=== PATIENT | female | born 1965 | race Hispanic/Latino ===

== ENCOUNTER 2020-10-21 21:15 | Emergency (ER) | payer OTHER, SELFPAY ==
--- OUTSIDE RECORDS SUMMARY | 2020-10-21 21:16 | XMS REPORT | Clinical Summary ---
:1965 Author Organization [facility] Address [address] [place] [address] Care Team Providers Name Role Phone Unavailable Primary Care Provider Unavailable Allergies Active Allergy Reactions Severity Noted Date Comments Tetracyclines Hives Medium 01/08/2019 Severe vomitin g and cramping Medications No known medications Active Problems Not on file Social History Tobacco Use Types Packs/Day Years Used Date Never Smoker Smokeless Tobacco: Never Used Alcohol Use Drinks/Week oz/Week Comments No Alcohol Habits Answer Date Recorded How often do you have a drink containing alcohol? Never 01/08/2019 How many drinks containing alcohol do you have on a typical Not asked day when you are drinking? How often do you have six or more drinks on one occasion? No t asked Sex Assigned at Date Recorded Not on file Last Filed Vital Signs Not on file Plan of Treatment Health Maintenance Due Date Last Done Comments BREAST CANCER SCREENING 1965 COLON CANCER SCREENING COLONOSCOPY 1965 CERVICAL CANCER SCREENING PAP ONLY (Age 21-65) 1986 LIPID PANEL 2010 INFLUENZA VACCINE (#1) 2020 Results Not on fileafter 10/21/2019 Insurance Payer Benefit Plan / Subscriber ID Effective Dates Phone Addre ss Type Group [facility] [id number] 2016-Татьяна [phone] HMO/POS HEALTH CHOICE CHOICE EXCHANGE t 04 AMBETTER AMBETTER [id number] 2018-Татьяна SUPERIOR t
--- OUTSIDE RECORDS SUMMARY | 2020-10-21 21:17 | XMS REPORT ---
:1965 Author Organization [facility] Address [address] [place] [address] Care Team Providers Name Role Phone Drake Romo Unavailable [phone] PROBLEMS Type Condition ICD9-CM [id number] Onset Condition SNOMED Code Notes Code Code Dates Status Problem Solitary R91.1 Active 879535306 pulmonary nodule Problem Dysthymic F34.1 Active 99205264 disorder Problem Seasonal and J30.9 Active 71821822 perennial allergic rhinitis Problem Mixed E78.2 Active 310356909 hyperlipidemia Problem Gastro-esophageal K21.9 Active 496951849 reflux disease without esophagitis Problem Fatigue, R53.83 Active 18577694 unspecified type Problem Diabetes mellitus E11.9 Active 059714172 without complication Problem Pelvic pain R10.2 Active 85652447 Problem Chronic vaginitis N76.1 Active 52616118 Problem Mixed N39.46 Active 590564492 incontinence Problem Vitamin B12 E53.8 Active 538560680 deficiency Problem Menopause Z78.0 Active 607970663 Problem Adult BMI Z68.31 Active 942446367 31.0-31.9 kg/sq m Problem Hypersomnia G47.10 Active 16150586 Problem Insomnia, G47.00 Active 924191423 unspecified type Problem Non-alcoholic K76.0 Active 380015020 fatty liver disease Problem Reactive airway J45.909 Active 438409124358 disease without complication, unspecified asthma severity, unspecified whether persistent Problem Vitamin D E55.9 Active 62238864 deficiency disease ALLERGIES Allergen (clinical drug Drug/Non Drug Allergy Reaction Allergy Type Onset Date Status ingredient) documented on EMR tetracycline tetracycline Unknown Drug Allergy Active ENCOUNTERS from 1965 to 2020-09-12 Encounter Location Date Provider Diagnosis [address], [place] [address] IMMUNIZATIONS Vaccine Route Administration Date Status PNEUMAVAX 23 IM Intramuscular December 22, 2018 Administered Betamethasone Sodium Phosphate Unknown Jun 18, 2019 A dministered Flucelvax - single dose syringe IM Intramuscular Sep 01, 2020 Administered Afluria IM Intramuscular December 22, 2018 Administered Adacel (Tdap) IM Intramuscular December 22, 2018 Administered Vitamin B12 (Cyanocobalamin) IM Intramuscular March 02, 2020 Ad ministered Vitamin B12 (Cyanocobalamin) IM Intramuscular Sep 23, 2019 Ad ministered Vitamin B12 (Cyanocobalamin) Unknown Aug 20, 2019 Pen ding Vitamin B12 (Cyanocobalamin) IM Intramuscular Jun 10, 2019 Ad ministered Vitamin B12 (Cyanocobalamin) IM Intramuscular Jun 02, 2019 Ad ministered Vitamin B12 (Cyanocobalamin) IM Intramuscular May 26, 2019 Ad ministered Vitamin B12 (Cyanocobalamin) IM Intramuscular May 19, 2019 Ad ministered LIDOCAINE HCL 10MG/ML Unknown Jun 18, 2019 Administer ed SOCIAL HISTORY Tobacco Use: Social History Observation Description Date Details (start date - stop date) Never Smoker Sex Assigned At : Social History Observation Description Sex Assigned At Unknown Alcohol Screen Question Answer Notes Did you have a drink containing alcohol in the past year? No Points 0 Interpretation Negative Tobacco Use/Smoking Question Answer Notes Are you a never smoker Additional Findings: Tobacco Non-User Current non-smoker Sexual History Question Answer Notes Had sex in the past 12 months (vaginal, oral, or anal)? Yes with Men only Use protection? No REASON FOR REFERRAL No Information VITAL SIGNS No information MEDICATIONS Medication SIG (Take, Route, Notes Start Date End Date Status Frequency, Duration) Zolpidem Tartrate 5 MG 1 tablet at bedtime Active Orally Once a day for 30 days Cyanocobalamin 1000 1 ml intramuscular Active MCG/ML injection once a week for 84 days Estrace 0.1 MG/GM as directed Vaginal 1g Not-Taking vaginally twice weekly Trazodone HCl 100 MG Take 1/2 tab QHS x 1 Not-Taking week then 1 tab QHS Orally Once a day for 30 ProAir HFA 108 (90 2 puffs as needed Active Base) MCG/ACT Inhalation every 6 hrs for 30 days Omeprazole 40 MG 1 capsule Orally Once a Active day for 30 day(s) BD Syringe/Needle 23G 1 syringe/needle with Active X 1" 3 ML b12 intramuscularly once a week for 84 days Victoza 18 MG/3ML inject 1.8 mg/day. Active Subcutaneous Once a day for 30 days Azithromycin 500 MG 1 tablet Orally Once a Aug,Aug, Active day for 5 day(s) 2019 Basaglar KwikPen 100 as directed Act dejuan UNIT/ML Subcutaneous 40 units once a day SQ for 30 days Simvastatin 80 MG 1 tablet in the evening Active Orally Once a day for 30 day(s) PROCEDURES No Information RESULTS No Results REASON FOR VISIT COVID/FLU/STREP Test--> PENDING MEDICAL (GENERAL) HISTORY Type Description Date Medical History Diabetes mellitus without complication Medical History Mixed hyperlipidemia Medical History Dysthymic disorder Medical History Solitary pulmonary nodule Medical History Gastro-esophageal reflux disease without esophagitis Medical History Seasonal and perennial allergic rhinitis Medical History Non-alcoholic fatty liver disease Medical History Fatigue, unspecified type Medical History Hypersomnia Surgical History Tubal ligation 1996 Surgical History Breast reduction 2000 Surgical History gall bladder surgery 1999 Surgical History Endometrial ablation 2011 Surgical History sling, at bladder neck 2014 Goals Section No Information Health Concerns No Information MEDICAL EQUIPMENT No Information MENTAL STATUS No Information FUNCTIONAL STATUS No Information ASSESSMENTS No Information PLAN OF TREATMENT Medication Medication Name Sig Start Date Stop Date Azithromycin 500 MG 1 tablet Orally Once a day for 5 day(s) 2019Aug, Next Appt Details Provider Name:Drake Romo 2020-09-20 0 9:50:00 AM, [address], [address], [place], [address], Insurance Providers Payer Name Payer Payer Insured Patient Coverage Coverage End Address Phone Name Relationship to Start Date Sreedhar e Insured Ambetter from [phone] Anna Mehta self [place] [id number] [address] [facility] [address]
--- OUTSIDE RECORDS SUMMARY | 2020-10-21 21:17 | XMS REPORT | Continuity of Care Document ---
:1965 Author Organization [facility] Care Team Providers Name Role Phone [facility] Unavailable Un available Problems Problem Status Onset Classification Date Comments Sourc e Date Reported R10.11 RIGHT Active Sout heast UPPER 6 QUADRANT PAIN, K80.20 Medications No Data Provided for This Section Allergies, Adverse Reactions, Alerts No Known Medication Allergies Immunizations No Data Provided for This Section Results Order Results Value Reference Date Interpretation Comments Source Name Range CHEM eGFR 101 08/20/ Result PANEL 2016 Comment: [facility] eGFR is calculated using the CKD-EPI formula. In most young, healthy individuals the eGFR will be >90 mL/min/1.73m2. The eGFR declines with age. An eGFR of 60-89 may be normal in some populations, particularly the elderly, for whom the CKD-EPI formula has not been extensively validated. Use of the eGFR is not recommended in the following populations:<b r/>
Indivi duals with unstable creatinine concentrations , including patients and those with serious co-morbid conditions.

Patient s with extremes in muscle mass or diet.

The data above are obtained from the National Kidney Disease Education Program (NKDEP) which additionally recommends that when the eGFR is used in patients with extremes of body mass index for purposes of drug dosing, the eGFR should be multiplied by the estimated BMI. CHEM POC 0.7 0.5 - 1.4 08/20/ PANEL Creatinine 2016 [facility] Pathology Reports No Data Provided for This Section Diagnostic Reports Report Value Date Source Abdomen w/wo contrast MR ABDOMEN WITHOUT AND WITH CONTRAST 08/20 [facility] MRI HISTORY: Hyperbilirubinemia, patient reports worsening right upper quadrant pain with nausea and diarrhea; TECHNIQUE: Multiplanar imagi ng sequences including in and out of phase imaging was performed. Additionally multiphasic postcontrast imaging after the administration of gadolinium contrast was obtained. COMPARISON: None available. FINDINGS: The liver appears normal. No cirrhotic features are identified. No hepatic steatosis. No focal liver lesion. No abnormal enhancement in the liver. There is no intrahepatic jose iary dilation. The gallbladder is not visualized and has likely been resected. No dilation of the common bile duct. No choledocholithiasis. Pancreas appears normal. No evidence of chronic or acute pancreatitis. No dilation of the pancreatic duct. No abnormal pancreatic enhancement. The adrenal glands, spleen, and kidneys appear normal. No hydronephrosis. Trace bilateral pleural effu sions and trace pericardial effusion are noted. The visualized portion of the small and large bowel appears normal. IMPRESSION: 1. Cholecystectomy. 2. Normal liver. No biliary dilation. 3. Trace pericardial effusion and trace bilatera l pleural effusions. SL: [id number] Consultation Notes No Data Provided for This Section Discharge Summaries No Data Provided for This Section History and Physicals No Data Provided for This Section Vital Signs No Data Provided for This Section Encounters Location Location Encounter Encounter Reason Attending ADM LA Stat us Source Details Type Number For Provider Date Date [facility] [id number] Eder 08[facility]20 08/21 Carlos Valenzuela /2015 [facility] Procedures No Data Provided for This Section Assessment and Plan No Data Provided for This Section Plan of Care No Data Provided for This Section Social History Social History Date Source No data available for this 08/21/2016 [facility] section Family History No Data Provided for This Section Advance Directives No Data Provided for This Section Functional Status No Data Provided for This Section
--- OUTSIDE RECORDS SUMMARY | 2020-10-21 21:17 | XMS REPORT ---
:1965 Author Organization [facility] Address [address] [place] [address] Care Team Providers Name Role Phone Drake Romo Unavailable [phone] PROBLEMS Type Condition ICD9-CM [id number] Onset Condition SNOMED Code Notes Code Code Dates Status Problem Solitary R91.1 Active 759000922 pulmonary nodule Problem Dysthymic F34.1 Active 20430257 disorder Problem Seasonal and J30.9 Active 14880278 perennial allergic rhinitis Problem Mixed E78.2 Active 270885118 hyperlipidemia Problem Gastro-esophageal K21.9 Active 580140517 reflux disease without esophagitis Problem Fatigue, R53.83 Active 42220739 unspecified type Problem Diabetes mellitus E11.9 Active 054412325 without complication Problem Pelvic pain R10.2 Active 94136011 Problem Chronic vaginitis N76.1 Active 96730993 Problem Mixed N39.46 Active 895942778 incontinence Problem Vitamin B12 E53.8 Active 332796056 deficiency Problem Menopause Z78.0 Active 250918611 Problem Adult BMI Z68.31 Active 694468021 31.0-31.9 kg/sq m Problem Hypersomnia G47.10 Active 77940588 Problem Insomnia, G47.00 Active 530053400 unspecified type Problem Non-alcoholic K76.0 Active 433722786 fatty liver disease Problem Reactive airway J45.909 Active 254248777991 disease without complication, unspecified asthma severity, unspecified whether persistent Problem Vitamin D E55.9 Active 64834516 deficiency disease ALLERGIES Allergen (clinical drug Drug/Non Drug Allergy Reaction Allergy Type Onset Date Status ingredient) documented on EMR tetracycline tetracycline Unknown Drug Allergy Active ENCOUNTERS from 1965 to 2020-09-01 Encounter Location Date Provider Diagnosis [facility] [address] [facility] Aug, [facility] Demetrius hurt for influenza Family Medicine [address], [place] [address] IMMUNIZATIONS Vaccine Route Administration Date Status PNEUMAVAX [...] No information MEDICATIONS Medication SIG (Take, Route, Start Date End Date Status Frequency, Duration) Victoza 18 MG/3ML inject 1.8 mg/day. Acti ve Subcutaneous Once a day for 30 days BD Syringe/Needle 23G X 1 syringe/needle with Active 1" 3 ML b12 intramuscularly once a week for 84 days Cyanocobalamin 1000 1 ml intramuscular Ac tive MCG/ML injection once a week for 84 days ProAir HFA 108 (90 Base) 2 puffs as needed Active MCG/ACT Inhalation every 6 hrs for 30 days Trazodone HCl 100 MG Take 1/2 tab QHS x 1 Not-Taking week then 1 tab QHS Orally Once a day for 30 Estrace 0.1 MG/GM as directed Vaginal 1g Not-Taking vaginally twice weekly Zolpidem Tartrate 5 MG 1 tablet at bedtime Active Orally Once a day for 30 days Omeprazole 40 MG 1 capsule Orally Once a Active day for 30 day(s) Basaglar KwikPen 100 as directed Subcutaneous Active UNIT/ML 40 units once a day SQ for 30 days Simvastatin 80 MG 1 tablet in the evening Active Orally Once a day for 30 day(s) Vitamin D3 32705 UNIT 1 capsule Orally Once a 18 May, 2020 15 Aug, 2020 Active week x 12 weeks for 30 day(s) PROCEDURES No Information RESULTS No Results REASON FOR VISIT immunization MEDICAL (GENERAL) HISTORY Type Description Date Medical [...] No Information FUNCTIONAL STATUS No Information ASSESSMENTS Encounter Date Diagnosis Notes Aug, Need for influenza vaccination (ICD-10 - Z23) PLAN OF TREATMENT Next Appt Details Provider Name:Drake Romo 2020-09-20 0 9:50:00 AM, [address], [place], [address], Insurance Providers Payer Name Payer Payer Insured Patient Coverage Coverage End Address Phone Name Relationship to Start Date Sreedhar e Insured Ambetter from [phone] Anna Mehta self [place] [id number] [address] [facility] [address]
--- OUTSIDE RECORDS SUMMARY | 2020-10-21 21:17 | XMS REPORT ---
:1965 Author Organization [facility] Address [address] [place] [address] Care Team Providers Name Role Phone Drake Romo Unavailable [phone] PROBLEMS Type Condition ICD9-CM [id number] Onset Condition SNOMED Code Notes Code Code Dates Status Problem Solitary R91.1 Active 941135027 pulmonary nodule Problem Dysthymic F34.1 Active 05955480 disorder Problem Seasonal and J30.9 Active 46792544 perennial allergic rhinitis Problem Mixed E78.2 Active 472700648 hyperlipidemia Problem Gastro-esophageal K21.9 Active 646077605 reflux disease without esophagitis Problem Fatigue, R53.83 Active 20417557 unspecified type Problem Diabetes mellitus E11.9 Active 027238886 without complication Problem Pelvic pain R10.2 Active 74341660 Problem Chronic vaginitis N76.1 Active 04846762 Problem Mixed N39.46 Active 461603599 incontinence Problem Vitamin B12 E53.8 Active 090619507 deficiency Problem Menopause Z78.0 Active 797759246 Problem Adult BMI Z68.31 Active 006467693 31.0-31.9 kg/sq m Problem Hypersomnia G47.10 Active 96953669 Problem Insomnia, G47.00 Active 238081027 unspecified type Problem Non-alcoholic K76.0 Active 628601186 fatty liver disease Problem Reactive airway J45.909 Active 069774817653 disease without complication, unspecified asthma severity, unspecified whether persistent Problem Vitamin D E55.9 Active 50193187 deficiency disease ALLERGIES Allergen (clinical drug Drug/Non Drug Allergy Reaction Allergy Type Onset Date Status ingredient) documented on EMR tetracycline tetracycline Unknown Drug Allergy Active ENCOUNTERS from 1965 to 2020-09-12 Encounter Location Date Provider Diagnosis [address] Aug, [facility] Demetrius [facility] Medicine [address], [place] [address] unspecified ty pe J06.9 ; Acute non-recurrent f rontal sinusitis J01.1 0 ; Right ear pain H92.01 and Suspected COVID-19 virus infection Z20.8 28 IMMUNIZATIONS Vaccine Route Administration Date Status PNEUMAVAX [...] REASON FOR REFERRAL No Information VITAL SIGNS Height 60 in Aug, Weight 167 lbs Aug, Temperature 97 degrees Fahrenheit Aug, BMI 32.61 kg/m2 Aug, Blood pressure systolic 135 mm Hg Aug, Blood pressure diastolic 74 mm Hg Aug, MEDICATIONS Medication SIG (Take, Route, Notes Start [...] for 30 day(s) PROCEDURES No Information RESULTS Component Value Reference Range STREP A RAPID Reviewed date:09/12/2020 17:35:19 Interpretation:Negative Performing Lab: Result Negative FLU TEST A/B Reviewed date:09/12/2020 17:35:19 Interpretation: Performing Lab: A Negative B Negative REASON FOR VISIT Earache and sore throat MEDICAL (GENERAL) HISTORY Type Description Date Medical [...] STATUS No Information ASSESSMENTS Encounter Date Diagnosis Assessment Notes Treatment Notes Treatm ent Clinical Notes Aug, Upper respiratory tract infection, unspecified type (ICD-10 - J06.9) Aug, Acute With the duration non-recurrent and severity of frontal sinusitis symptoms/PE, will (ICD-10 - J01.10) treat with Zithromax for 5 days. Side effect discussed with patient. In addition, discussed supportive measures and home remedies for symptomatic relief. Increase hydration. Advised on signs/symptoms to monitor. If able to take, OK to use OTC Tylenol and/or NSAIDs for pain and fever, temporarily. It is important to rest and take your medication as recommended by the doctor. You should clean your hands frequently. You should remain indoors and cover your mouth when coughing. If necessary you may have to wear a mask to keep from infecting others. You should also change your toothbrush within 24-48 hours of starting any antibiotics. Salt water gargles three times a day is recommended for pharyngeal irritation and congestion. Nasal saline sprays three times a day to the nostrils may help with the nasal congestion. You may also take Mucinex OTC for chest congestion. If the symptoms persists or worsen after 24-48 hours especially if taking medication, then you are to call back for reevaluation or go to the ER. Aug, Right ear pain (ICD-10 - H92.01) Aug, Suspected COVID-19 Questionable/possibl virus infection e exposure to COVID. (ICD-10 - Z20.828) With patient's history and duration/severity of symptoms, it was determined to proceed with testing of this patient for suspected case of COVID-19. CDC/IDER protocols were followed. While maintaining minimal exposure specimen was collected while patient remained in their car. Clinical staff went to the car dressed in appropriate PPE to collect the specimen while maintaining protocol. === During testing/collection of nasopharyngeal specimen, staff/provider wore proper PPE, bagged specimen and properly disposed of PPE accordingly. - Specimen was verified with patient name/, properly handed to appropriate lab personnel. Patient was counseled based on clinical assessment, disease severity, and input from infectious disease and local health department. if local health department deemed that patient can be sent home, patient was provided with a surgical mask and advised to wear while commuting home. Patient was advised to self-quarantine for 14 days, or until negative results are received. Patient was instructed to refer to CDC guidelines and provided additional information on self-quarantine. Local health department contact information was given to patient: ==[facility], [address] [place] [address]. [phone] or [phone] Aug, Other -- Medication reviewed and updated. -- Dietary and Lifestyle modifications addressed regarding diet, exercise and weight managemen t. -- Treatment options, risks and benefits, side effects reviewed in detail. -- Advised on signs/symptoms to monitor and when to call clinic and/or visit the nearest ER. Patient verbalized understanding and agreeable with plan. PLAN OF TREATMENT Medication Medication Name Sig Start Date Stop Date Azithromycin 500 MG 1 tablet Orally Once a day for 5 day(s) 23 2019Aug, Treatment Notes Assessment Notes Clinical Notes Acute non-recurrent frontal With the duration and severity o f sinusitis symptoms/PE, will treat with Zithromax for 5 days. Side effect discussed with patient. In addition, discussed supportive measures and home remedies for symptomatic relief. Increase hydration. Advised on signs/symptoms to monitor. If able to take, OK to use OTC Tylenol and/or NSAIDs for pain and fever, temporarily. It is important to rest and take your medication as recommended by the doctor. You should clean your hands frequently. You should remain indoors and cover your mouth when coughing. If necessary you may have to wear a mask to keep from infecting others. You should also change your toothbrush within 24-48 hours of starting any antibiotics. Salt water gargles three times a day is recommended for pharyngeal irritation and congestion. Nasal saline sprays three times a day to the nostrils may help with the nasal congestion. You may also take Mucinex OTC for chest congestion. If the symptoms persists or worsen after 24-48 hours especially if taking medication, then you are to call back for reevaluation or go to the ER. Suspected COVID-19 virus Questionable/possible exposure to infection COVID. With patient's history and duration/severity of symptoms, it was determined to proceed with testing of this patient for suspected case of COVID-19. CDC/IDER protocols were followed. While maintaining minimal exposure specimen was collected while patient remained in their car. Clinical staff went to the car dressed in appropriate PPE to collect the specimen while maintaining protocol. During testing/collection of nasopharyngeal specimen, staff/provider wore proper PPE, bagged specimen and properly disposed of PPE accordingly. - Specimen was verified with patient name/, properly handed to appropriate lab personnel. Patient was counseled based on clinical assessment, disease severity, and input from infectious disease and local health department. if local health department deemed that patient can be sent home, patient was provided with a surgical mask and advised to wear while commuting home. Patient was advised to self-quarantine for 14 days, or until negative results are received. Patient was instructed to refer to CDC guidelines and provided additional information on self-quarantine. Local health department contact information was given to patient: ==[facility], [address] [place] [address]. [phone] or [phone] Treatment Notes Test Name Order Date Novel Coronavirus (COVID-19), RODRIGO 2020-09-12 Next Appt Details prn Reason: Provider Name:Drake Romo, 2020-09-20 0 9:50:00 AM, [address], [place], [address], Insurance Providers Payer Name Payer Payer Insured Patient Coverage Coverage End Address Phone Name Relationship to Start Date Sreedhar e Insured Ambetter from [phone] Anna Mehta self [place] [id number] [address] [facility] [address]
--- OUTSIDE RECORDS SUMMARY | 2020-10-21 21:17 | XMS REPORT | Continuity of Care Document ---
:1965 Author Organization [facility] t Address [address] [place] [address] Care Team Providers Name Role Phone Narinder Valenzuela Attending Clinician Problems Condition Condition Condition Status Onset Resolution Last Treating Co mments Source Name Details Category Date Date Treatment Clinician Date R10.11 Diagnosis Active 2015-102016-08-20 Mem oria RIGHT 0-24 13:18:00 l UPPER R10.11 00:00: [place] QUADRANT RIGHT 00 PAIN, UPPER K80.20 QUADRANT PAIN, K80.20 Active 08/13/2016 [facility] Uterine Uterine Problem Active [facility] leiomyoma, leiomyoma, Cl inic unspecifie unspecifie d location d location Postmenopa Postmenopa Problem Active [facility] RLQ RLQ Problem Active [facility] abdominal abdominal Clin ic pain pain History of History of Problem Active [facility] endometria endometria Cl inic l ablation l ablation History of History of Problem Active [facility] tubal tubal Clinic ligation ligation Allergies, Adverse Reactions, Alerts Allergy Allergy Status Severity Reaction(s) Onset Inactive Treating Comm ents Source Name Type Date Date Clinician Tetracyc Drug Active Hives 2018-[address] [facility] Allergy 3-21 vomiting [facility] 00 cramping Center Tetracyc Adverse Active hives, [facility] line HCl Reaction vomiting Clin ic tetracyc Adverse Active Info Not [facility] Reaction [facility] Social History Social Habit Start Date Stop Date Quantity Comments Source History [facility] St[facility] History [facility] Alcohol Binge Medical Faby ter Sex Assigned At [facility] Tobacco use and 2019-01-08 2019-01-[address] Latisha kes - exposure 00:00:00 00:00:00 [facility] Alcohol intake 2019-01-08 2019-01-[address] [facility] - 00:00:00 00:00:00 non-drinker of Medical Ce nter alcohol (finding) History SDVA 2019-01-08 2019-01-[address] [facility] - Alcohol Frequency 00:00:00 00:00:00 [facility] Social History 2016-08-21 2016-08-21 [facility] 04:59:00 04:59:00 Smoking Status Start Date Stop Date Source [facility] Medications Ordered Filled Start Stop Current Ordering Indication Dosage Frequency Signature Comments Components Source Medication Medication Date Date Medication? Clinician (SIG) Name Name Vitamin D3 Vitamin D3 2019-0 2020- No Drake [address] [facility] 8-18 11-15 Romo [facility] 00[facility]: [facility]00 [facility] Zolpidem Zolpidem 2019-0 Yes Drake [address] [facility] Tartrate Tartrate 5-13 Romo at bedtime [facility] - 00:[facility]: [facility] 00 [facility] Yes Natanael not [facility] FlexTouch Flex[facility] Yes Drake as [facility] KwikPen KwikPen Romo directed [facility] Victoza Victoza Yes Drake inject 1.[address] Romo mg/day. [facility] Trazodone Trazodone Yes Drake Take 1/[address] [facility] HCl HCl Romo tab QHS x [facility] - 1 week Memoria then 1 tab l QHS [facility] Estrace Estrace Yes Drake as [facility]o directed [facility] Simvastatin Simvastatin Yes Drake [address] [facility] Romo in the [facility] - evening [facility] ProAir HFA ProAir HFA Yes Drake [address] [facility] Romo needed [facility] BD BD Yes Drkae [address] [facility] Syringe/Nee Syringe/Nee Romo syringe/ne [facility] dle dle edle with Memoria b12 l [facility] Cyanocobala Cyanocobala Yes Drake [address] min min Romo [facility] Omeprazole Omeprazole Yes Drake [address] [facility] Romo [facility] Procedures This patient has no known procedures. Plan of Care Planned Activity Planned Date Details Comments Source Future Scheduled 2020-06-[address] [facility] Test 00:00:00 (#1) [code = [facility] INFLUENZA VACCINE (#1)] Future Scheduled [address] [facility] Test 00:00:00 (procedure) [code = [facility] 97666900] Future Scheduled [address] [facility] - Test 00:00:00 malignant neoplasm Medical C enter of cervix (procedure) [code = 359709249] Future Scheduled [address] [facility] - Test 00:00:00 malignant neoplasm Medical C enter of breast (procedure) [code = 710840337] Future Scheduled [address] [facility] - Test 00:00:00 malignant neoplasm Medical C enter of colon (procedure) [code = 394602954] Encounters Start End Encounter Admission Attending Care Care Encounter Source Date/Time Date/Time Type Type Clinicians Facility Department ID 2020-09-20 2020-09-20 Outpatient [facility] [id number] [facility] 2020-09-12 2020-09-12 Outpatient [facility] [id number] [facility] 2020-09-12 2020-09-12 Outpatient [facility] [id number] [facility] 2020-09-12 2020-09-12 Outpatient [facility] [id number] [facility] 2020-09-01 2020-09-01 [facility] [id number] [facility] 2020-06-07 2020-06-07 [facility] [id number] [address] 15:00:00 15:00:00 t [facility] Outpat[facility] Clinics 2020-05-26 2020-05-26 [facility] [id number] 11:16:00 11:16:00 t [facility] Out[facility] Clinics 2020-03-02 2020-03-02 [facility] [id number] 08:45:00 08:45:00 t [facility] Outpati ent Clinics 2020-02-25 2020-02-25 [facility] [id number] 10:08:00 10:08:00 t [facility] Out[facility] Clinics 2020-02-08 2020-02-08 [facility] [id number] 09:09:00 09:09:00 t [facility] Medicine Outpati ent Clinics 2020-02-04 2020-02-04 [facility] [id number] 11:56:00 11:56:00 t [facility] l Medicine Outpati ent Clinics 2020-02-03 2020-02-03 [facility] [id number] 14:40:00 14:40:00 t [facility] [employer] [facility] Medicine Outpati ent Clinics 2020-02-03 2020-02-03 [facility] [id number] 11:36:00 11:36:00 t [facility] Medicine Outpati ent Clinics 2020-01-11 2020-01-11 [facility] [id number] 08:09:00 08:09:00 t [facility] Outpati ent Clinics 2019-10-28 2019-10-28 [facility] [id number] 09:03:00 09:03:00 t [place] [facility] Outpati ent Clinics 2019-10-27 2019-10-27 [facility] [id number] 15:00:00 15:00:00 [place] [facility] Outpati ent Clinics 2019-09-23 2019-09-23 [facility] [id number] 16:45:00 16:45:00 t [place] [facility] Outpati ent Clinics 2019-08-19 2019-08-19 [facility] [id number] 17:06:00 17:06:00 t [place] [facility] 2019-06-23 2019-06-23 [facility] [id number] 08:30:00 08:30:00 t [facility] [place] ent Clinics 2019-06-18 2019-06-18 [facility] [id number] 15:52:00 15:52:00 t [facility] [place] ent Clinics 2019-06-18 2019-06-18 [facility] [id number] 10:30:00 10:30:00 t [facility] ent Clinics 2019-06-10 2019-06-10 [facility] [id number] 15:00:00 15:00:00 t [place] [facility] 2019-06-02 2019-06-02 [facility] [id number] 15:00:00 15:00:00 [place] [employer] [facility] Outpati ent Clinics 2017-12-18 2017-12-18 Outpatient [facility](Julia [facility]( [id number] [facility] 10:45:00 10:45:00 n [facility] ) 2017-12-18 2017-12-18 Outpatient [facility](Julia [facility]( [id number] [facility] 09:45:00 09:45:00 n [facility] ) 2017-11-27 2017-11-27 Outpatient [facility](Julia [facility]( [id number] [facility] 15:30:00 15:30:00 n [facility] ) 2016-08-20 2016-08-[address] [facility] [id number] 13:11:00 23:59:00 Eder 00 [place] Results Test Description Test Time Test Comments Results Result Comments Source CHEM PANEL 2016-08-20 101 Bryan Gordon nn 18:58:00 CHEM PANEL 2016-08-20 0.7 Bryan Gordon nn 18:58:00
--- OUTSIDE RECORDS SUMMARY | 2020-10-21 21:18 | XMS REPORT ---
:1965 Author Organization [facility] Address [address], [address] [place] [address] Care Team Providers Name Role Phone Drake Romo Unavailable [phone] PROBLEMS Type Condition ICD9-CM [id number] Onset Condition SNOMED Code Notes Code Code Dates Status Problem Solitary R91.1 Active 376806656 pulmonary nodule Problem Dysthymic F34.1 Active 72045676 disorder Problem Seasonal and J30.9 Active 02541302 perennial allergic rhinitis Problem Mixed E78.2 Active 599003600 hyperlipidemia Problem Gastro-esophageal K21.9 Active 989684300 reflux disease without esophagitis Problem Fatigue, R53.83 Active 95844672 unspecified type Problem Diabetes mellitus E11.9 Active 954486540 without complication Problem Pelvic pain R10.2 Active 35563372 Problem Chronic vaginitis N76.1 Active 64368709 Problem Mixed N39.46 Active 585138349 incontinence Problem Vitamin B12 E53.8 Active 574485465 deficiency Problem Menopause Z78.0 Active 024220181 Problem Adult BMI Z68.31 Active 095509686 31.0-31.9 kg/sq m Problem Hypersomnia G47.10 Active 20184195 Problem Insomnia, G47.00 Active 962716011 unspecified type Problem Non-alcoholic K76.0 Active 987037909 fatty liver disease Problem Reactive airway J45.909 Active 360350562822 disease without complication, unspecified asthma severity, unspecified whether persistent Problem Vitamin D E55.9 Active 47907741 deficiency disease ALLERGIES Allergen (clinical drug Drug/Non Drug Allergy Reaction Allergy Type Onset Date Status ingredient) documented on EMR tetracycline tetracycline Unknown Drug Allergy Active ENCOUNTERS from 1965 to 2020-09-19 Encounter Location Date Provider Diagnosis [facility] [address] [facility] [address], [place] [address] IMMUNIZATIONS Vaccine Route Administration Date Status PNEUMAVAX [...] Duration) Victoza 18 MG/3ML inject 1.8 mg/day. Active Subcutaneous Once a day for 30 days Trazodone HCl 100 MG Take 1/2 tab QHS x 1 Not-Taking week then 1 tab QHS Orally Once a day for 30 Estrace 0.1 MG/GM as directed Vaginal 1g Not-Taking vaginally twice weekly Simvastatin 80 MG 1 tablet in the evening Active Orally Once a day for 30 day(s) ProAir HFA 108 (90 Base) 2 puffs as needed Active MCG/ACT Inhalation every 6 hrs for 30 days Cyanocobalamin 1000 1 ml intramuscular Active MCG/ML injection once a week for 84 days Basaglar KwikPen 100 as directed Subcutaneous Active UNIT/ML 40 units once a day SQ for 30 days Zolpidem Tartrate 5 MG 1 tablet at bedtime Active Orally Once a day for 30 days Omeprazole 40 MG 1 capsule Orally Once a Active day for 30 day(s) BD Syringe/Needle 23G X 1 syringe/needle with Active 1" 3 ML b12 intramuscularly once a week for 84 days PROCEDURES No Information RESULTS No Results REASON FOR VISIT COVID test--> NEGATIVE MEDICAL (GENERAL) HISTORY Type Description Date Medical [...] Information ASSESSMENTS No Information PLAN OF TREATMENT Next Appt Details Provider Name:[facility] Romo, 2020-09-20 0 9:50:00 AM, [facility] [address], [address], [place], [address], Insurance Providers Payer Name Payer Payer Insured Patient Coverage Coverage End Address Phone Name Relationship to Start Date Sreedhar e Insured Ambetter from [phone] Anna Mehta self [place] [id number] [address] [facility] [address]
--- OUTSIDE RECORDS SUMMARY | 2020-10-21 21:18 | XMS REPORT ---
:1965 Author Organization [facility] Address [address], [address] [place] [address] Care Team Providers Name Role Phone Drake Romo Unavailable [phone] PROBLEMS Type Condition ICD9-CM [id number] Onset Condition SNOMED Code Notes Code Code Dates Status Problem Solitary R91.1 Active 707491428 pulmonary nodule Problem Dysthymic F34.1 Active 20155953 disorder Problem Seasonal and J30.9 Active 46829466 perennial allergic rhinitis Problem Mixed E78.2 Active 920867885 hyperlipidemia Problem Gastro-esophageal K21.9 Active 128219463 reflux disease without esophagitis Problem Fatigue, R53.83 Active 54703924 unspecified type Problem Diabetes mellitus E11.9 Active 479458372 without complication Problem Pelvic pain R10.2 Active 51951829 Problem Chronic vaginitis N76.1 Active 75486343 Problem Mixed N39.46 Active 493577685 incontinence Problem Vitamin B12 E53.8 Active 774225025 deficiency Problem Menopause Z78.0 Active 769423522 Problem Adult BMI Z68.31 Active 720827374 31.0-31.9 kg/sq m Problem Hypersomnia G47.10 Active 61497433 Problem Insomnia, G47.00 Active 326626149 unspecified type Problem Non-alcoholic K76.0 Active 016843770 fatty liver disease Problem Reactive airway J45.909 Active 113372377008 disease without complication, unspecified asthma severity, unspecified whether persistent Problem Vitamin D E55.9 Active 59649503 deficiency disease ALLERGIES Allergen (clinical drug Drug/Non Drug Allergy Reaction Allergy Type Onset Date Status ingredient) documented on EMR tetracycline tetracycline Unknown Drug Allergy Active ENCOUNTERS from 1965 to 2020-09-20 Encounter Location Date Provider Diagnosis Pablo Ness [address] Sep, [facility] Romo [address] Family [address] [place], [place] [address] E11.9 ; Mixed hyperlipidemia E78.2 ; Insomnia, unspe cified type G47.00 ; V itamin B12 deficiency E53.8 ; Dysthymic disor shaina F34.1 ; Vitamin D deficiency dise ase E55.9 ; Gastro-esophage al reflux disease without esophagitis K21 .9 ; Seasonal and pe rennial allergic rhinit is J30.9 ; Fatigue, unsp ecified type R53.83 ; Noncompliance w/medication tr eatment due to intermit use of medication Z91. 14 ; Adult BMI 31.0- 31.9 kg/sq m Z68.31 and Caregiver stres s Z63.6 IMMUNIZATIONS Vaccine Route Administration Date Status PNEUMAVAX [...] No Information VITAL SIGNS Height 60 in Sep, Weight 168 lbs Sep, Temperature 98.5 degrees Fahrenheit Sep, BMI 32.81 kg/m2 Sep, Blood pressure systolic 134 mm Hg Sep, Blood pressure diastolic 74 mm Hg Sep, MEDICATIONS Medication SIG (Take, Route, Notes Start Date End Date Status Frequency, Duration) Simvastatin 80 MG 1 tablet in the evening Active Orally Once a day for 30 day(s) Basaglar KwikPen 100 as directed Subcutaneous Active UNIT/ML 40 units once a day SQ for 30 days Victoza 18 MG/3ML inject 1.8 mg/day. Active Subcutaneous Once a day for 30 days Trazodone HCl 100 MG Take 1/2 tab QHS x 1 Not-Taking week then 1 tab QHS Orally Once a day for 30 BD Syringe/Needle 23G X 1 syringe/needle with Active 1" 3 ML b12 intramuscularly once a week for 84 days Estrace 0.1 MG/GM as directed Vaginal 1g Not-Taking vaginally twice weekly ProAir HFA 108 (90 Base) 2 puffs as needed Active MCG/ACT Inhalation every 6 hrs for 30 days Zolpidem Tartrate 5 MG 1 tablet at bedtime Active Orally Once a day for 30 days Cyanocobalamin 1000 1 ml intramuscular Active MCG/ML injection once a week for 84 days Omeprazole 40 MG 1 capsule Orally Once a Active day for 30 day(s) PROCEDURES No Information RESULTS No Results REASON FOR VISIT 3 mth lab f/u MEDICAL (GENERAL) HISTORY Type Description Date Medical [...] Notes Treatment Notes Treatm ent Clinical Notes Sep, Diabetes mellitus CONTINUE BASAGLAR + without complication VICTOZA. STOP (ICD-10 - E11.9) Tradjenta due to being on Viztoza. Instructions given. Side effect discussed. Instructed to check BGT. Titrate Basaglar instructions given. Education given. Samples given. Sep, Mixed hyperlipidemia INCREASED Zocor to (ICD-10 - E78.2) 80 mg. Side effect dsicussed. Sep, Insomnia, Due to minimal unspecified type relief with (ICD-10 - G47.00) [id number] medication and trazodone, will trial Ambien 5 mg and titrate as tolerated.. Side effect discussed. Good sleep hygiene discussed. Discussed red box warning. Instructed to use as needed only. Using it very seldomly. Worried about not able to wake up to take care of parents. Sep, Vitamin B12 Discussed DDx and deficiency (ICD-10 - treatment options. E53.8) Due to severity, will start weekly IM and then transitions to PO. Education given. Side effect panel discussed. Sep, Dysthymic disorder Education given. (ICD-10 - F34.1) Sep, Vitamin D deficiency Start with 50,000 disease (ICD-10 - IU once weekly then E55.9) transition to daily supplements of 5000IU. , Discussed on causes of Vit D Def. Increase sunlight + Hydration + Exercise + Food High in Vit D and OTC supplements. Sep, Gastro-esophageal Stable. Education reflux disease given. without esophagitis (ICD-10 - K21.9) Sep, Seasonal and perennial allergic rhinitis (ICD-10 - J30.9) Sep, Fatigue, unspecified Increase sunlight + type (ICD-10 - Exercise + Vit D R53.83) Supplements. Sep, Noncompliance Encouraged and w/medication educated on treatment due to importance of intermit use of compliance with medication (ICD-10 - medication Z91.14) appointments. Education given. Patient agreeable and verbalized understanding peer Sep, Adult BMI 31.0-31.9 kg/sq m (ICD-10 - Z68.31) Sep, Caregiver stress . Actively (ICD-10 - Z63.6) listened. Resources given. Education given. Discussed on counseling and treatment options. Sep, Other -- Medication reviewed and updated. -- [...] Medication Name Sig Start Date Stop Date Simvastatin 80 MG 1 tablet in the evening Orally Once a day for 30 day(s) Zolpidem Tartrate 5 MG 1 tablet at bedtime Orally Once a day for 30 days Cyanocobalamin 1000 MCG/ML 1 ml intramuscular injection once a week for 84 days ProAir HFA 108 (90 Base) MCG/ACT 2 puffs as needed Inhalation every 6 hrs for 30 days Omeprazole 40 MG 1 capsule Orally Once a day for 30 day(s) BD Syringe/Needle 23G X 1" 3 ML 1 syringe/needle with b12 intramuscularly once a week for 84 days Victoza 18 MG/3ML inject 1.8 mg/day. Subcutaneous Once a day for 30 days Basaglar KwikPen 100 UNIT/ML as directed Subcutaneous 40 units once a day SQ for 30 days Treatment Notes Assessment Notes Clinical Notes Diabetes mellitus without CONTINUE BASAGLAR + VICTOZA. STOP complication Tradjenta due to being on Viztoza. Instructions given. Side effect discussed. Instructed to check BGT. Titrate Basaglar instructions given. Education given. Samples given. Mixed hyperlipidemia INCREASED Zocor to 80 mg. Side effect dsicussed. Insomnia, unspecified type Due to minimal relief with [id number] medication and trazodone, will trial Ambien 5 mg and titrate as tolerated.. Side effect discussed. Good sleep hygiene discussed. Discussed red box warning. Instructed to use as needed only. Using it very seldomly. Worried about not able to wake up to take care of parents. Vitamin B12 deficiency Discussed DDx and treatment options. Due to severity, will start weekly IM and then transitions to PO. Education given. Side effect panel discussed. Dysthymic disorder Education given. Vitamin D deficiency disease Start with 50,000 IU once weekl y then transition to daily supplements of 5000IU. , Discussed on causes of Vit D Def. Increase sunlight + Hydration + Exercise + Food High in Vit D and OTC supplements. Gastro-esophageal reflux disease Stable. Education given. without esophagitis Fatigue, unspecified type Increase sunlight + Exercise + Vit D Supplements. Noncompliance w/medication treatment Encouraged and educated on due to intermit use of medication importance of compliance w ith medication appointments. Education given. Patient agreeable and verbalized understanding peer Caregiver stress . Actively listened. Resources given. Education given. Discussed on counseling and treatment options. Treatment Notes Test Name Order Date Lipid Panel With LDL/HDL Ratio 2020-09-20 Microalbumin/Creat Ratio, Random Ur 2020-09-20 Hemoglobin A1c 2020-09-20 Vitamin B12 2020-09-20 Comp. Metabolic Panel (14) (CMP) 2020-09-20 CBC With Differential/Platelet 2020-09-20 Vitamin D, 25-Hydroxy 2020-09-20 Next Appt Details 3 Months TV + Labs 1 week before Reason: Insurance Providers Payer Name Payer Payer Insured Patient Coverage Coverage End Address Phone Name Relationship to Start Date Sreedhar e Insured Ambetter from [phone] Anna Mehta self [place] [id number] [facility] [address]
[2020-10-21] MEDS ORDERED: ACETAMINOPHEN 325 MG TABLET ONE (21:57)
[2020-10-21] MEDS ORDERED: IBUPROFEN 400 MG TAB ONE (21:58)
[2020-10-21 23:24] LABS: SARS-COV-2 RT PCR NEGATIVE (NEGATIVE)
[2020-10-22 00:07] LABS: Urine Blood TRACE (NEG); Urine Glucose 2+ (NEG); Urine Protein NEGATIVE (NEG); Urine pH 5.5 (5.0-7.0)
[2020-10-22 00:47] LABS: Urine Bacteria LOADED /HPF (<20); Urine Mucus 1+ /HPF (NONE SEEN); Urine RBC <5 /HPF (NONE SEEN)
[2020-10-22 00:53] LABS: Absolute Lymphocytes (CBC) 1.5 K/uL (0.7-4.9); Basophils % 0.7 % (0-1.3); Hematocrit 42.7 % (36.0-45.0); Lymphocytes % 11.9 % (15.3-44.8); MPV 6.9 fL (7.6-11.3); RBC Red Blood Cell Count 4.98 M/uL (3.86-4.86)
[2020-10-22 01:07] LABS: Potassium 3.9 mmol/L (3.5-5.1)
--- NOTE | 2020-10-22 02:04 | ER ---
Nurse's Notes [facility] Name: Eli Mehta Age: 54 yrs Sex: Female : 1965 Arrival Date: 10/21/2020 Time: 21:18 Bed 7 Private MD: Diagnosis: Urinary tract infection Presentation: 10/21 21:32 Chief complaint: Patient states: i have fever of 102 today. i took motrin 200 mg \T\ 1929 mg2 and tylenol 325 mg \T\ 2044. i have nausea and mild diarrhea as well. i travelled to [place] lately. Coronavirus screen: Client denies travel out of the [place] in the last 14 days. Client presents with at least one sign or symptom that may indicate coronavirus-19. Standard/surgical mask placed on the client. Provider contacted for isolation considerations. Ebola Screen: No symptoms or risks identified at this time. Initial Sepsis Screen: Does the patient have a suspected source of infection?. Risk Assessment: Do you want to hurt yourself or someone else? Patient reports no desire to harm self or others. Onset of symptoms was October 21, 2020. 21:32 Method Of Arrival: Ambulatory mg2 21:32 Acuity: KASHIF 3 mg2 21:34 Initial Sepsis Screen: Does the patient meet any 2 criteria? Temp <36.0*C (96.8*F)) or mg2 > 38.3*C (100.9*F). HR > 90 bpm. Yes If YES to both, name of provider notified: Keily CHA. Triage Assessment: 22:04 General: Appears in no apparent distress. comfortable, Behavior is calm, cooperative. 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 - Social history:: Smoking status: Patient denies any tobacco usage or history of. Patient/guardian denies using alcohol, street drugs. Screenin:03 Abuse screen: Denies threats or abuse. Denies injuries from another. Nutritional mg2 screening: No deficits noted. Tuberculosis screening: No symptoms or risk factors identified. Fall Risk None identified. Assessment: 21:34 General: CODE SEPSIS 700 CALLED. mg2 21:34 Pain: Complains of pain in whole body. Neuro: Level of Consciousness is awake, alert, mg2 obeys commands, Oriented to person, place, time, situation. Cardiovascular: Capillary refill < 3 seconds Patient's skin is warm and dry. Respiratory: Airway is patent Respiratory effort is even, unlabored, Respiratory pattern is regular, symmetrical. GI: Reports diarrhea, nausea. : No signs and/or symptoms were reported regarding the genitourinary system. EENT: No signs and/or symptoms were reported regarding the EENT system. Derm: Skin is intact, is healthy with good turgor, Skin is pink, warm \T\ dry. normal. Musculoskeletal: Circulation, motion, and sensation intact. Capillary refill < 3 seconds. 21:40 Reassessment: provider said not to do septic work up on her. 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 23:06 Reassessment: Patient appears in no apparent distress at this time. Patient and/or mg2 family updated on plan of care and expected duration. Pain level reassessed. Patient is alert, oriented x 3, equal unlabored respirations, skin warm/dry/pink. 10/22 01:02 Reassessment: patient sent to ct scan via stretcher. mg2 01:46 Reassessment: Patient appears in no apparent distress at this time. Patient and/or mg2 family updated on plan of care and expected duration. Pain level reassessed. Patient is alert, oriented x 3, equal unlabored respirations, skin warm/dry/pink. 02:08 Reassessment: Patient appears in no apparent distress at this time. Patient is alert, rr5 oriented x 3, equal unlabored respirations, skin warm/dry/pink. discharge instruction given and explained without complaints made. Vital Signs: 10/21 21:32 BP 126 / 82; Pulse 135; Resp 18; Temp 103.2; Pulse Ox 98% on R/A; Weight 75.3 kg; mg2 Height 5 ft. 0 in. (152.40 cm); 22:42 Pulse 119; Resp 18; Temp 100.2; Pulse Ox 96% on R/A; mg2 / 01:46 BP 95 / 60; Pulse 95; Resp 18; Temp 98.1; Pulse Ox 97% on R/A; mg2 02:08 BP 97 / 61; Pulse 90; Resp 17; Pulse Ox 99% ; rr5 10/21 21:32 Body Mass Index 32.42 (75.30 kg, 152.40 cm) mg2 ED Course: 10/21 21:18 Patient arrived in ED. ds1 21:19 Keily Bauer FNP-C [facility]. kb 21:19 Erick Baldwin MD is Attending Physician. kb 21:20 Rock Owusu, RN is Primary Nurse. rr5 21:35 Triage completed. mg2 21:36 Patient has correct armband on for positive identification. mg2 21:49 Micha Salas, ROSIBEL is Primary Nurse. mg2 22:02 Pulse ox on. NIBP on. mg2 22:03 Arm band placed on. mg2 22:03 No provider procedures requiring assistance completed. COVID swab sent to lab. Flu mg2 and/or RSV swab sent to lab. Patient did not have IV access during this emergency room visit. 10/22 00:17 Chest Single View XRAY In Process Unspecified. EDMS 00:47 Inserted saline lock: 20 gauge in right forearm, using aseptic technique. rr5 01:20 CT Abd/Pelvis - IV Contrast Only In Process Unspecified. EDMS 02:09 IV discontinued, intact, bleeding controlled, No redness/swelling at site. Pressure rr5 dressing applied. Administered Medications: 10/21 21:49 Drug: Tylenol 325 mg Route: PO; mg2 23:06 Follow up: Response: No adverse reaction; Temperature is decreased mg2 21:49 Drug: Ibuprofen 400 mg Route: PO; mg2 23:06 Follow up: Response: No adverse reaction; Temperature is decreased mg2 10/22 02:05 Drug: Cipro 500 mg Route: PO; mg2 02:05 Follow up: Response: No adverse reaction; Medication administered at discharge. mg2 Outcome: 02:04 Discharge ordered by . pkl 02:09 Discharged to home ambulatory. rr5 02:09 Condition: stable 02:09 Discharge instructions given to patient, Instructed on discharge instructions, follow up and referral plans. medication usage, Demonstrated understanding of instructions, follow-up care, medications, Prescriptions given X 1. 02:10 Patient left the ED. rr5 Addendum: 10/25/2020 08:17 Addendum: Culture Results: Positive urine culture. No further action required. Bacteria s v sensitive to prescribed antibiotic. Signatures: Dispatcher [employer] EDMS Keily Bauer, Evie Barboza, RN RN Erick Chi MD MD pkl Sanford, Demi ds1 Micha Salas RN RN mg2 Rock Owusu RN RN rr5 Corrections: (The following items were deleted from the chart) 10/21 21:35 21:32 Onset of symptoms was October 21, 2019 mg2 mg2 10/22 00:56 10/21 21:34 General: CODE SEPSIS 700 CALLED. mg2 mg2 10/22 02:10 02:08 BP 97 / 49; Pulse 90bpm; Resp 17bpm; Pulse Ox 99%; rr5 rr5
--- NOTE | 2020-10-22 02:04 | EDPHYS ---
Physician Documentation [facility] Name: Eli Mehta Age: 54 yrs Sex: Female : 1965 Arrival Date: 10/21/2020 Time: 21:18 Bed 7 Private MD: ED Physician Erick Abreu HPI: 10/21 21:54 This 54 yrs old Female presents to ER via Ambulatory with complaints of kb Chills, Fever, Body Aches. 21:54 The patient or guardian reports flu symptoms, low-grade fever, myalgias. Onset: The kb symptoms/episode began/occurred last night. Severity of symptoms: At their worst the symptoms were moderate, in the emergency department the symptoms are unchanged. Modifying factors: The symptoms are alleviated by nothing, the symptoms are aggravated by nothing. Associated signs and symptoms: Pertinent positives: fever, Pertinent negatives: chest pain, diarrhea, ear ache, nausea, rhinorrhea, sore throat, vomiting. The patient has not experienced similar symptoms in the past. The patient has not recently seen a physician. Pt reports she started having chills last night, today they got worse and she has had fever and bodyaches. Pt tearful and anxious while telling history. Pt states she traveled out of state last week to see her daughter and she is afraid that is when she got it. 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 Pt recently lost her mother and is now afraid. 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 - Social history:: Smoking status: Patient denies any tobacco usage or history of. Patient/guardian denies using alcohol, street drugs. ROS: 21:53 ENT: Negative for injury, pain, and discharge, Cardiovascular: Negative for chest pain, kb palpitations, and edema, Respiratory: Negative for shortness of breath, cough, wheezing, and pleuritic chest pain, Abdomen/GI: Negative for abdominal pain, nausea, vomiting, diarrhea, and constipation, MS/Extremity: Negative for injury and deformity, Skin: Negative for injury, rash, and discoloration, Neuro: Negative for headache, weakness, numbness, tingling, and seizure. 21:53 Constitutional: Positive for body aches, chills, fever. Exam: 21:53 Head/Face: Normocephalic, atraumatic. Chest/axilla: Normal chest wall appearance and kb motion. Nontender with no deformity. No lesions are appreciated. Cardiovascular: Regular rate and rhythm with a normal S1 and S2. No gallops, murmurs, or rubs. Normal PMI, no JVD. No pulse deficits. Respiratory: Lungs have equal breath sounds bilaterally, clear to auscultation and percussion. No rales, rhonchi or wheezes noted. No increased work of breathing, no retractions or nasal flaring. Abdomen/GI: Soft, non-tender, with normal bowel sounds. No distension or tympany. No guarding or rebound. No evidence of tenderness throughout. Skin: Warm, dry with normal turgor. Normal color with no rashes, no lesions, and no evidence of cellulitis. MS/ Extremity: Pulses equal, no cyanosis. Neurovascular intact. Full, normal range of motion. Neuro: Awake and alert, GCS 15, oriented to person, place, time, and situation. Cranial nerves II-XII grossly intact. Motor strength 5/5 in all extremities. Sensory grossly intact. Cerebellar exam normal. Normal gait. 21:53 Constitutional: The patient appears alert, awake, anxious. 10/22 00:38 Abdomen/GI: Inspection: abdomen appears normal, Bowel sounds: normal, in all quadrants, kb Palpation: moderate abdominal tenderness, in the right lower quadrant. Vital Signs: 10/21 21:32 BP 126 / 82; Pulse 135; Resp 18; Temp 103.2; Pulse Ox 98% on R/A; Weight 75.3 kg; mg2 Height 5 ft. 0 in. (152.40 cm); 22:42 Pulse 119; Resp 18; Temp 100.2; Pulse Ox 96% on R/A; mg2 10/22 01:46 BP 95 / 60; Pulse 95; Resp 18; Temp 98.1; Pulse Ox 97% on R/A; mg2 02:08 BP 97 / 61; Pulse 90; Resp 17; Pulse Ox 99% ; rr5 10/21 21:32 Body Mass Index 32.42 (75.30 kg, 152.40 cm) mg2 MDM: 10/21 21:21 Patient medically screened. kb 21:53 Data reviewed: vital signs, nurses notes. Data interpreted: Pulse oximetry: on room air kb is 98 %. Interpretation: normal. 10/22 00:38 Transition of care: After a detail discussion of the patient's case, care is kb transferred to Erick Abreu MD. ED course: Now pt reports abd pain and has tenderness to RLQ. Labs and CT ordered. Discussed with Dr Abreu. 02:02 Data reviewed: vital signs, nurses notes, lab test result(s), radiologic studies, CT pkl scan. ED course: patient feeling better. Advised to follow up with her PCP in 2 to 3 days. Patient understood instructions. 10/21 23:24 Order name: COVID-19/FLU A+B; Complete Time: 23:48 EDMS 10/22 00:01 Order name: Urine Microscopic Only; Complete Time: 01:58 kb 10/22 00:05 Order name: Urine Dipstick--Ancillary (enter results) tt3 10/22 00:08 Order name: Urine Dipstick-Ancillary; Complete Time: 00:09 EDMS 10/21 23:49 Order name: Chest Single View XRAY; Complete Time: 17:37 kb 10/22 00:37 Order name: CBC with Diff; Complete Time: 01:59 kb 10/22 00:37 Order name: Basic Metabolic Panel; Complete Time: 01:59 kb 10/22 00:37 Order name: CT Abd/Pelvis - IV Contrast Only kb 10/22 00:48 Order name: Urine Culture EDMS 10/22 01:06 Order name: CREATININE WHOLE BLOOD; Complete Time: 01:59 EDMS 10/21 23:49 Order name: Urine Dipstick-Ancillary (obtain specimen); Complete Time: 00:05 kb 10/22 00:37 Order name: IV Start; Complete Time: 00:44 kb Administered Medications: 10/21 21:49 Drug: Tylenol 325 mg Route: PO; mg2 23:06 Follow up: Response: No adverse reaction; Temperature is decreased mg2 21:49 Drug: Ibuprofen 400 mg Route: PO; mg2 23:06 Follow up: Response: No adverse reaction; Temperature is decreased mg2 10/22 02:05 Drug: Cipro 500 mg Route: PO; mg2 02:05 Follow up: Response: No adverse reaction; Medication administered at discharge. mg2 Disposition: 04:06 Co-signature as Attending Physician, Erick Abreu MD. pkl Disposition: 10/22/20 02:04 Discharged to Home. Impression: Urinary tract infection. - Condition is Stable. - Prescriptions for Cipro 500 mg Oral Tablet - take 1 tablet by ORAL route every 12 hours for 7 days; 14 tablet. - Medication Reconciliation Form, Thank You Letter, Antibiotic Education, Prescription Opioid Use form. - Follow up: Private Physician; When: 2 - 3 days; Reason: Re-evaluation by your physician. Signatures: Dispatcher [employer] EDMS Keily Bauer, FITTINGS TIGHTENER-C FITTINGS TIGHTENER-Erick Talley MD MD pkMicha Gilmore RN RN mg2 Rock Owusu RN RN rr5 Corrections: (The following items were deleted from the chart) 10/21 22:23 21:41 Influenza Screen (A \T\ B)+BA.LAB.BRZ ordered. EDPA EDMS 22:23 21:41 CORONAVIRUS+MR.LAB.BRZ ordered. EDPA EDMS 10/22 02:10 02:04 10/22/2020 02:04 Discharged to Home. Impression: Urinary tract infection. rr5 Condition is Stable. Forms are Medication Reconciliation Form, Thank You Letter, Antibiotic Education, Prescription Opioid Use. Follow up: Private Physician; When: 2 - 3 days; Reason: Re-evaluation by your physician. pkl
[2020-10-22 02:19] VITALS: TEMP 98.1
[2020-10-22 02:20] VITALS: BP 97/61; O2SAT 99
[2020-10-22] MEDS ORDERED: CIPROFLOXACIN HCL 500 MG TAB ONE (02:22)
--- NOTE | 2020-10-22 08:59 | RAD REPORT ---
EXAM DESCRIPTION: Eric Single View10/22/2020 12:17 am CLINICAL HISTORY: Fever COMPARISON: 2013 FINDINGS: The lungs appear clear of acute infiltrate. The heart is normal size IMPRESSION: No acute abnormalities displayed
--- NOTE | 2020-10-23 15:10 | RAD REPORT ---
EXAM DESCRIPTION: CT - Abdomen Pelvis W Contrast - 10/22/2020 6:43 am CLINICAL HISTORY: The patient is 54 years old and is Female; ABD PAIN TECHNIQUE: Axial computed tomography images of the abdomen and pelvis with intravenous contrast. S agittal and coronal reformatted images were created and reviewed. This CT exam was performed using one or more of the following dose reduction techniques: automated exposure control, adjustment of t he mA and/or kV according to patient size, and/or use of iterative reconstruction technique. COMPARISON: CT of the abdomen and pelvis August 08, 2016 FINDINGS: LUNG BASES: Unremarkable. No mass. No consolidation. ABDOMEN: LIVER: The liver is enlarged and diffusely fatty. GALLBLADDER AND BILE DUCTS: Surgical clips are present in the right upper quadrant, consistent wi th previous cholecystectomy. PANCREAS: No ductal dilation. No mass. SPLEEN: Unremarkable. ADRENALS: Unremarkable. No mass. KIDNEYS AND URETERS: Punctate right intrarenal calcification is present. There is no hydronephros is or hydroureter of either kidney. No obstructing renal or ureteral calculus is seen. A 1.4 cm lower pole right renal lesion is present. The kidneys enhance symmetrically. STOMACH AND BOWEL: The stomach is distended with food contents. The small bowel is relatively nor mal in caliber. Minimal stool is present throughout colon. There is no mucosal thickening or evidence of bowel obstruction. PELVIS: APPENDIX: The appendix is normal in caliber without surrounding inflammation. BLADDER: The bladder is not well distended. REPRODUCTIVE: Unremarkable as visualized. ABDOMEN and PELVIS: INTRAPERITONEAL SPACE: Unremarkable. No free air. No significant fluid collection. BONES/JOINTS: No acute fracture. SOFT TISSUES: The soft tissues are normal. VASCULATURE: Unremarkable. No abdominal aortic aneurysm. LYMPH NODES: Unremarkable. No enlarged lymph nodes. IMPRESSION: 1. No acute findings on this contrasted CT of the abdomen and pelvis to explain the pa tient's symptoms. 2. Low attenuating slightly heterogeneous right renal lesion. ACR White Paper guidelines (Herts, et al. JACR 2018; 15(2):264-273) suggest referral for management if a referral has not already been performed. Electronically signed by: Ana Mejía MD 10/22/2020 1:33 AM [employer] Due to temporary technical issues with the PACS/Fluency reporting system, reports are being signed by the in house radiologists without review as a courtesy to insure prompt reporting. The interpreting radiologist is fully responsible for the content of the report.
== END 2020-10-22 02:10 | disposition home or self-care (01) ==
LOC: ER 21:15
DX: N39.0 Urinary tract infection, site not specified (principal); Z20.828 Contact with and (suspected) exposure to other viral communicable diseases; J45.909 Unspecified asthma, uncomplicated; E11.9 Type 2 diabetes mellitus without complications; Z79.4 Long term (current) use of insulin; Z88.1 Allergy status to other antibiotic agents
CPT/HCPCS: 0240U; 36415; 71045; 74177; 80048; 81003; 81015; 82565; 85025; 87077; 87086; 87088; 87186; 99284; Q9967